=== PATIENT | female | born 1990 | race Caucasian/White ===

== ENCOUNTER 2023-06-17 15:33 | Emergency (ER) | payer OTHER, SELFPAY ==
[2023-06-17 16:05] VITALS: BP 103/59; PULSE 78; RESP 14; TEMP 37.4; O2SAT 99; BMI 19.4
--- NOTE | 2023-06-17 16:11 | ED.GENADULT ---
HPI - General Adult General Chief complaint: Weakness Stated complaint: fatigue, vomitting los of appetite Time Seen by Provider: 06/17/23 22:05 Source: patient Mode of arrival: ambulatory Limitations: no limitations History of Present Illness HPI narrative: 32 yo female with PMH of anxiety and episodes of GI distress related to stress comes in with c/o n/v/d and lower abdominal pain starting all at once this AM. NO travel, sick contacts, food exposures, antibiotics in last 4 weeks. She now has a frontal headache and feels tired from all of the vomiting. MD complaint: n/v/d abdominal pain headaches Onset (ago): day(s) (this AM) Location: abdomen Severity: moderate Quality: aching Pain Consistency: intermittent Relieving factors: none Exacerbating factors: eating Associated symptoms: loss of appetite, malaise and nausea/vomiting Treatments prior to arrival: none Related Data Previous Rx's Medication Instructions Recorded ondansetron 4 mg disintegrating 4 mg PO Q8H PRN nausea and 06/17/23 tablet vomiting #20 tabs Allergies Allergy/AdvReac Type Severity Reaction Status Date / Time acetaminophen [From TYLENOL] Allergy Severe NAUSEA/VOMI Unverified 12/23/19 16:11 DEREK Review of Systems Review of Systems: Constitutional : No Weight loss, No Fever, No Chills ENT/Mouth : No sore throat, No Rhinorrhea Eyes: No Swelling, No Redness Cardiovascular : No Chest Pain, No SOB, NoEdema Respiratory : No Cough, No Sputum, No Wheezing Gastrointestinal : Positive Nausea, Positive Vomiting, positive Diarrhea, positive abdominal Pain, No Hematochezia, No Melena Genitourinary : No Dysuria, No Urinary Frequency, No Hematuria, No Urgency Musculoskeletal : No joint pain, No Myalgias, No Joint Swelling Skin : No Skin Lesions, No rash Neuro : No Weakness, No Numbness, No Dizziness, pos Headache Psych : No Anxiety/Panic, No Depression Heme/Lymph: No Bruising, No Lymphadenopathy Endocrine : No Polyuria, No Polydipsia All other systems reviewed and are negative. [facility] Past Medical History Attestation statement: The following information was validated with the patient. Source: old records reviewed Medical History Anxiety Social History Social History (Updated 06/17/23 @ 22:45 by RAFAT Lennon Patient Tobacco Use Status: Never used Tobacco Smoked in Last 30 Days: No Use of substances other than those prescribed or required for medical reasons: No Any prior treatment program specific to substance use: No Advance Directives: No Advance Directives Information Provided: No Patient : No Physical Exam ED Vital Signs: Vital Signs - 24 hr 06/17/23 16:05 06/17/23 22:04 06/18/23 01:06 Temperature 99.3 F 98.2 F 97.8 F Pulse Rate 78 71 78 Respiratory Rate 14 14 14 Blood Pressure 103/59 L 112/59 L 116/50 L Pulse Oximetry 99 100 99 Oxygen Delivery Method Room Air Room Air Room Air BMI result Body Mass Index 19.4 Appearance: Alert. Oriented X3. No acute distress. Eyes: Pupils equal, round and reactive to light. ENT: Pharynx moderate dry MM Neck: Normal inspection. Neck supple. CVS: Normal heart rate and rhythm. Pulses normal. Respiratory: No respiratory distress. Breath sounds normal. Abdomen: Soft and mild LLQ Pain no rebound Skin: Skin warm and dry. Normal skin color. Normal skin turgor. Extremities: No lower extremity edema. No calf ttp Neuro: Oriented X 3. No motor deficit. No sensory deficit. Course Course Course Narrative: RME; 32 year female presents to ED for fatigue, vomiting, loss of appetite. Patient also states mild nasal congestion and sore throat. Medications Administered Discontinued Medications Generic Name Dose Route Start Last Admin Trade Name Freq PRN Reason Stop Dose Admin Diphenhydramine HCl 25 mg 06/17/23 22:32 06/17/23 22:57 Diphenhydramine Hcl 50 Mg/Ml Vial IVPUSH 06/17/23 22:33 25 mg ONCE ONE Administration Sodium Chloride 1,000 mls @ 999 mls/hr 06/17/23 22:45 06/18/23 00:38 Ns IV 06/17/23 23:45 Infused .Q1H1M CRYSTAL Infusion Sodium Chloride 1,000 mls @ 999 mls/hr 06/17/23 22:45 06/18/23 00:38 Ns IV 06/17/23 23:45 Infused .Q1H1M CRYSTAL Infusion Ketorolac Tromethamine 15 mg 06/17/23 22:32 06/17/23 22:48 Ketorolac Tromethamine 15 Mg/Ml Vial IM 06/17/23 22:33 15 mg ONCE ONE Administration Lorazepam 0.5 mg 06/18/23 00:01 06/18/23 00:16 Lorazepam 2 Mg/Ml Vial IVPUSH 06/18/23 00:02 Not Given STAT STA Metoclopramide HCl 10 mg 06/17/23 22:32 06/17/23 22:57 Metoclopramide Hcl 10 Mg/2 Ml Vial IVPUSH 06/17/23 22:33 10 mg ONCE ONE Administration Medical Decision Making Medical Decision Making MDM Narrative: 32 yo female with PMH of anxiety here with c/o n/v/d and abdominal pain now with headache after vomiting all day she is not toxic appearing but does appear dry has mild LLQ pain all symptoms started together and headache is when she gets up from likely dehydration. It is not severe she is playing on her phone she has a normal neuro exam doubt SAH. She has no RLQ pain to suggest appendicitis and all symptoms started together. At this time will need basic labs, UA, UPT hydrate and provide supportive care suspect viral syndrome Differential Diagnosis Differential Diagnoses: The differential diagnosis associated with the presentation includes dehydration, viral syndrome, enteritis Admission/Observation Consideration of admission/observation: Escalation of care including admission/observation considered feels better can tolerate PO Lab Data [facility] Lab Attestation statement: I reviewed the patient's lab results. 06/17/23 16:33 06/17/23 16:33 Labs: Lab Results 06/17/23 Range/Units 16:33 WBC 10.2 (4.8-10.8) X10*3/uL RBC 4.53 (4.20-5.50) X10*6/uL Hgb 14.3 (12.0-16.0) g/dl Hct 41.2 (37.0-47.0) % MCV 90.9 (80.0-98.0) fL MCH 31.6 (27.0-33.0) pg MCHC 34.7 (31.0-35.0) g/dl RDW 13.2 (11.0-16.0) % Plt Count 207 (160-400) X10*3/uL MPV 9.7 (9.4-12.3) fL Immature Gran % (Auto) 0.3 (0.0-0.4) % Neut % (Auto) 88.2 H (45-73) % Lymph % (Auto) 9.1 L (20-40) % [place] % (Auto) 2.3 (2-11) % Eos % (Auto) 0.0 (0-4) % Baso % (Auto) 0.1 (0-2) % Lymph # (Auto) 0.9 L (1.2-4.9) X10*3/uL [place] # (Auto) 0.2 (0.1-1.2) X10*3/uL Eos # (Auto) 0.0 (0.0-0.4) X10*3/uL Baso # (Auto) 0.0 (0.0-0.2) X10*3/uL Abs Immat Gran (auto) 0.03 (0.00-0.03) X10*3/uL Absolute Neuts (auto) 9.0 H (2.0-8.3) x10*3/uL Absolute Nucleated RBC 0.000 (0.0-0.012) X10*3/uL Nucleated RBC % (auto) 0.0 (0.0-0.2) /100WBC Sodium 138 (135-145) mmol/L Potassium 4.2 (3.3-5.1) mmol/L Chloride 106 (96-108) mmol/L Carbon Dioxide 26 (22-29) mmol/L Anion Gap 10 L (12-20) BUN 10 (9-16) mg/dL Creatinine 0.62 (0.5-1.4) mg/dL Estim Creat Clear Calc 84.8 Estimated GFR > 60 Random Glucose 104 (60-115) mg/dL Calcium 9.6 (8.4-10.2) mg/dL Total Bilirubin 1.7 H (0.0-1.0) mg/dL AST 16 (5-31) U/L ALT 11 (0-31) U/L Alkaline Phosphatase 88 (39-117) U/L Total Protein 7.3 (6.5-8.0) g/dL Albumin 4.7 (3.5-5.0) g/dL Lipase 12 (8-78) U/L Urine Color Yellow Urine Appearance Clear Urine pH 8.5 (5.0-9.0) Ur Specific [place] 1.025 (1.005-1.025) Urine Protein Negative (Neg-Trace) mg/dL Urine Glucose (UA) Negative (Negative) mg/dL Urine Ketones 40 (Negative) mg/dL Urine Blood Negative (Negative) Urine Nitrite Negative (Negative) Ur Leukocyte Esterase Negative (Negative) Urine Test NEGATIVE (NEGATIVE) Influenza Type A (PCR) NEGATIVE (Negative) Influenza Type B (PCR) NEGATIVE (Negative) RSV RNA Qual (PCR) NEGATIVE (Negative) SARS-CoV-2 RNA (RT-PCR) NEGATIVE (Negative) S. pyogenes GrpA JD Negative (Negative) External Record Review External record reviewed: Inpatient record Prescription Management I considered prescription management with: Other Discharge Plan Discharge Clinical Impression: Nausea & vomiting Qualifiers: Vomiting type: unspecified Qualified Code(s): R11.2 - Nausea with vomiting, unspecified Diarrhea Qualifiers: Diarrhea type: unspecified type Qualified Code(s): R19.7 - Diarrhea, unspecified Patient Disposition: Home, Self-Care Instructions: Acute Nausea and Vomiting (ED), Acute Diarrhea (ED) Additional Instructions: stay hydrated drink plenty of fluids, advance diet slowly over the next 48 hours return for fevers, worsening pain, inability to eat or drink or any other concerns. Prescriptions: New ondansetron 4 mg tablet,disintegrating 4 mg PO Q8H PRN (Reason: nausea and vomiting) Qty: 20 0RF Stand Alone Forms: Work/School Release Interventions: ED Discharge Assessment Last Done: 06/18/23 01:16 Discharge Date/Time: 06/18/23 01:17
[2023-06-17 16:38] LABS: MANUAL DIFF FLAG NO
[2023-06-17 16:41] LABS: Basophils Percent Auto 0.1 % (0-2); Hematocrit 41.2 % (37.0-47.0); Hemoglobin 14.3 g/dl (12.0-16.0); Imm Gran Abs Auto 0.03 X10*3/uL (0.00-0.03); Imm Gran Pct Auto 0.3 % (0.0-0.4); Lymphocytes Absolute Auto 0.9 X10*3/uL (1.2-4.9); Lymphocytes Percent Auto 9.1 % (20-40); Mean Corpuscular HGB Conc 34.7 g/dl (31.0-35.0); Mean Corpuscular Hemoglobin 31.6 pg (27.0-33.0); Mean Corpuscular Volume 90.9 fL (80.0-98.0); Mean Platelet Volume 9.7 fL (9.4-12.3); Monocytes Absolute Auto 0.2 X10*3/uL (0.1-1.2); Monocytes Percent Auto 2.3 % (2-11); Neutrophils Percent Auto 88.2 % (45-73); Platelet Count 207 X10*3/uL (160-400); Red Blood Count 4.53 X10*6/uL (4.20-5.50); Red Cell Distribution Width 13.2 % (11.0-16.0); White Blood Count 10.2 X10*3/uL (4.8-10.8)
[2023-06-17 16:42] LABS: Appearance Urine Clear; Color Urine Yellow; Glucose Urine UA Negative (Negative); Leukocyte Esterase Urine Negative (Negative); Nitrite Urine Negative (Negative); PH 8.5 (5.0-9.0); Specific Gravity - Urine 1.025 (1.005-1.025); Urine Blood Negative (Negative); Urine Ketones 40 mg/dL (Negative); Urine Protein Negative (Neg-Trace)
[2023-06-17 16:50] LABS: UPreg QC Valid YES; Urine Pregnancy NEGATIVE (NEGATIVE)
[2023-06-17 17:00] LABS: Alanine Aminotransferase 11 U/L (0-31); Albumin Level 4.7 g/dL (3.5-5.0); Alkaline Phosphatase 88 U/L (39-117); Anion Gap 10 (12-20); Aspartate Amino Transferase 16 U/L (5-31); Bilirubin Total 1.7 mg/dL (0.0-1.0); Blood Urea Nitrogen 10 mg/dL (9-16); Calcium 9.6 mg/dL (8.4-10.2); Carbon Dioxide 26 mmol/L (22-29); Chloride 106 mmol/L (96-108); Creatinine Clr Calc Pharmacy 84.8; Estimated Glomerular Filt Rate > 60; Glucose Random 104 mg/dL (60-115); Lipase 12 U/L (8-78); Potassium 4.2 mmol/L (3.3-5.1); Sodium 138 mmol/L (135-145); Total Protein 7.3 g/dL (6.5-8.0)
[2023-06-17 17:16] LABS: Influenza A PCR NEGATIVE (Negative); Influenza B PCR NEGATIVE (Negative); Resp Syncy Virus RNA Qual PCR NEGATIVE (Negative); SARS COV2 PCR INHOUSE NEGATIVE (Negative)
[2023-06-17 17:23] LABS: IDNOW Serial# 08D9AD1C
[2023-06-17 17:24] LABS: Strep A Nucleic Acid Negative (Negative)
[2023-06-17 22:04] VITALS: BP 112/59; PULSE 71; RESP 14; TEMP 36.8; O2SAT 100
[2023-06-17] MEDS: Ketorolac Tromethamine 15 MG/ML VIAL IM (22:48)
[2023-06-17] MEDS: 0.9 % Sodium Chloride 1,000 ML 999 ML IV ×2 (22:48)
[2023-06-17] MEDS: Metoclopramide HCl 10 MG/2 ML VIAL IVPUSH (22:57)
[2023-06-17] MEDS: diphenhydrAMINE HCL 50 MG/ML VIAL 25 MG IVPUSH (22:57)
[2023-06-18 01:06] VITALS: BP 116/50; PULSE 78; RESP 14; TEMP 36.6; O2SAT 99
== END 2023-06-18 01:17 | disposition home or self-care (01) ==
PROVIDERS: Physician Assistant; Emergency Provider Emergency Medicine
DX: R11.2 Nausea with vomiting, unspecified (principal); R53.83 Other fatigue; R19.7 Diarrhea, unspecified; Z11.52 Encounter for screening for COVID-19; Z20.822 Contact with and (suspected) exposure to COVID-19; Z79.899 Other long term (current) drug therapy
CPT/HCPCS: 0241U; 80053; 81003; 81025; 83690; 85025; 87651; 96361; 96372; 96374; 96375; 99284; 99285; J1200; J1885; J2765

== ENCOUNTER 2024-08-20 09:55 | Emergency (ER) | payer MEDICAID, SELFPAY ==
--- NOTE | ~2024-08-20 | US_ITS ---
EXAMINATION: US PELVIS CLINICAL INFORMATION: Left lower quadrant abdominal pain. COMPARISON: None available. TECHNIQUE: Ultrasound of the pelvis is performed using both transabdominal and transvaginal transducers along with Doppler. Transvaginal imaging is performed due to inadequate visualization transabdominally. FINDINGS: Uterus: The uterus is anteverted, anteflexed, and measures 7.3 x 3.1 x 3.8 cm. The cervix has a normal appearance. The double wall endometrial thickness is 6 mm. The uterus is smooth in contour and has normal myometrial echogenicity. No visible fibroid. Adnexa: Both ovaries are visualized. There is normal color flow to the adnexa. There is no ovarian torsion. There is small volume anechoic free pelvic fluid, likely physiologic. There are prominent vessels in the left adnexa, nonspecific. Right ovary measures 3.4 x 2.0 x 1.9 cm. Volume = 6.1 mL. Normal sonographic appearance. Left ovary measures 3.7 x 1.8 x 2.2 cm. Volume = 9.1 mL. Normal sonographic appearance. US/US pelvic and transvaginal IMPRESSION: 1. Mildly prominent vessels in the left adnexa, nonspecific finding which could potentially relate to pelvic congestion syndrome. 2. Otherwise normal pelvic ultrasound. Electronically signed by: Freddy Moore MD 08/20/2024 12:27 PM EDT
[2024-08-20 10:05] VITALS: BP 108/70; PULSE 77; O2SAT 98
[2024-08-20 10:16] VITALS: BP 95/62; PULSE 85; RESP 18; TEMP 36.7; O2SAT 99; BMI 21.5
[2024-08-20 10:33] LABS: MANUAL DIFF FLAG NO
[2024-08-20 10:36] LABS: Basophils Percent Auto 0.1 % (0-2); Eosinophils Percent Auto 0.1 % (0-4); Hematocrit 39.5 % (37.0-47.0); Hemoglobin 14.3 g/dl (12.0-16.0); Imm Gran Abs Auto 0.03 X10*3/uL (0.00-0.03); Imm Gran Pct Auto 0.4 % (0.0-0.4); Lymphocytes Percent Auto 12.4 % (20-40); Mean Corpuscular HGB Conc 36.2 g/dl (31.0-35.0); Mean Corpuscular Hemoglobin 32.8 pg (27.0-33.0); Mean Corpuscular Volume 90.6 fL (80.0-98.0); Mean Platelet Volume 9.6 fL (9.4-12.3); Monocytes Absolute Auto 0.2 X10*3/uL (0.1-1.2); Monocytes Percent Auto 2.5 % (2-11); Neutrophils Absolute Auto 7.1 x10*3/uL (2.0-8.3); Neutrophils Percent Auto 84.5 % (45-73); Platelet Count 203 X10*3/uL (160-400); Red Blood Count 4.36 X10*6/uL (4.20-5.50); Red Cell Distribution Width 12.4 % (11.0-16.0); White Blood Count 8.4 X10*3/uL (4.8-10.8)
[2024-08-20 10:46] LABS: Appearance Urine Turbid; Color Urine Yellow; Glucose Urine UA Negative (Negative); Leukocyte Esterase Urine Trace (Negative); Nitrite Urine Negative (Negative); PH >= 9.0 (5.0-9.0); Specific Gravity - Urine 1.025 (1.005-1.025); UMIC TRIGGER UACC YES; UPreg QC Valid YES; Urine Blood Negative (Negative); Urine Ketones 80 mg/dL (Negative); Urine Protein 30 (1+) mg/dL (Neg-Trace)
[2024-08-20 10:47] LABS: Urine Pregnancy NEGATIVE (NEGATIVE)
[2024-08-20 10:51] LABS: Anion Gap 14 (12-20); Blood Urea Nitrogen 17 mg/dL (9-16); Calcium 9.4 mg/dL (8.4-10.2); Carbon Dioxide 25 mmol/L (22-29); Chloride 105 mmol/L (96-108); Creatinine Clr Calc Pharmacy 81.4; Estimated Glomerular Filt Rate > 60; Glucose Random 106 mg/dL (60-115); Potassium 3.9 mmol/L (3.3-5.1); Sodium 140 mmol/L (135-145)
[2024-08-20 10:56] LABS: Bacteria Urine Trace (None Seen); Hyaline Casts Urine 0-2 /LPF (0-2); RBC Urine 0-2 /HPF (0-2); WBC Urine 0-5 /HPF (0-5)
[2024-08-20 10:57] LABS: Other Crystals Urine Present
--- NOTE | 2024-08-20 11:37 | ED_ITS ---
HPI - General Adult General Chief complaint: Abdominal Pain Stated complaint: anxiety Time Seen by Provider: 08/20/24 11:26 Source: patient Mode of arrival: ambulatory Limitations: no limitations History of Present Illness HPI narrative: A 34-year-old woman with a past medical history of anxiety, marijuana use who presents for evaluation of abdominal pain, nausea/vomiting, diarrhea and anxiety. Patient states that she has experienced similar symptoms nearly on a monthly basis for the last approximate 10 years. She states symptoms started 1 day prior to presentation. She reports having left lower quadrant abdominal pain. She states pain was not abrupt onset and waxes and wanes in severity. She states that she has not taken anything for pain today. She states the pain feels better when she presses on her abdomen with her hands. She reports few episodes of nonbloody, nonbilious emesis and loose, nonbloody stools. She states that she has had a ?runs ?, which she attributes to drinking milk. She states no abdominal surgical history. She states no recent hospitalization or use of antibiotics in the last month. He states that she has smoke marijuana regularly, but states no other recreational/illicit drugs. She states no significant alcohol use. She states no headaches, fevers, cough, congestion, chest pain or dyspnea. She states no trauma. She states no urinary symptoms, vaginal discharge or concerns for sexually transmitted infection. She states her last menstrual period was about 2-3 weeks ago. Related Data Previous Rx's ?Medication ?Instructions ?Recorded ondansetron 4 mg disintegrating 4 mg PO Q8H PRN nausea and 06/17/23 tablet vomiting #20 tabs ondansetron 4 mg disintegrating 4 mg PO Q8H PRN nausea and 08/20/24 tablet vomiting #20 tabs Allergies Allergy/AdvReac Type Severity Reaction Status Date / Time acetaminophen [From TYLENOL] Allergy Severe NAUSEA/VOMI Verified 08/20/24 10:18 DEREK Review of Systems 2 Review of Systems: ROS as per [facility] Past Medical History Medical History Anxiety Social History Social History (Updated 06/17/23 @ 22:45 by Bernie Tucker DO) Alcohol intake: former Patient Tobacco Use Status: Never used Tobacco Smoked in Last 30 Days: No Use of substances other than those prescribed or required for medical reasons: Yes Substance Use Type: Marijuana Advance Directives: No Advance Directives Information Provided: Yes Do you have a plan to hurt others: No Plan Physical Exam ED Vital Signs: Vital Signs - 24 hr 08/20/24 10:16 08/20/24 12:09 Temperature 98.0 F 98.5 F Pulse Rate 85 66 Respiratory Rate 18 18 Blood Pressure 95/62 94/44 L Pulse Oximetry 99 Oxygen Delivery Method Room Air Room Air Oxygen Flow Rate 99 BMI result Body Mass Index 21.5 Gen: NAD, AOx3 HEENT: NCAT, EOMI, normal conjunctiva CV: RRR Pulm: CTAB, no increased work of breathing GI: Soft, NTND, no rebound, guarding or rigidity Neuro: Grossly non focal Medications Administered Generic Name Dose Route Start Last Admin Trade Name Freq PRN Reason Stop Dose Admin Sodium Chloride 1,000 mls @ 999 mls/hr 08/20/24 11:45 08/20/24 12:06 Ns IV 08/20/24 12:45 999 mls/hr .Q1H1M CRYSTAL Administration Discontinued Medications Generic Name Dose Route Start Last Admin Trade Name Freq PRN Reason Stop Dose Admin Ketorolac Tromethamine 15 mg 08/20/24 11:34 08/20/24 12:05 Ketorolac Tromethamine 15 Mg/Ml Vial IVPUSH 08/20/24 11:35 15 mg ONCE ONE Administration Lorazepam 1 mg 08/20/24 11:35 08/20/24 11:45 Lorazepam 1 Mg Tablet PO 08/20/24 11:36 Not Given ONCE ONE Ondansetron HCl 4 mg 08/20/24 11:34 08/20/24 12:05 Ondansetron Hcl 4 Mg/2 Ml Vial IVPUSH 08/20/24 11:35 4 mg ONCE ONE Administration Medical Decision Making Medical Decision Making [facility] Narrative: Differential diagnosis includes, but is not limited to ovarian cyst, gastroenteritis, IBS Patient is afebrile and hemodynamically stable on room air. Exam is benign and reassuring. The patient is treated supportively here in the emergency room with IV fluids, Toradol, Zofran and Ativan. I reviewed and interpreted the patient's labs, urinalysis and diagnostic imaging as below. On re-examination, patient is well-appearing and in no acute distress. ?Patient states symptoms have resolved. ?There is no indication for further emergent evaluation in this otherwise well-appearing patient as above. ?Patient is provided written and verbal instructions, educational materials, recommendations for outpatient follow-up, referral to OBGYN, prescription for Zofran, strict return precautions and teach back is performed. ?Patient states understanding and agreement with plan of care. ?Patient is discharged home in stable and improved condition. Admission/Observation Consideration of admission/observation: Escalation of care including admission/observation considered Lab Data MDM Lab Attestation statement: I reviewed the patient's lab results. CBC is unremarkable. Basic metabolic panel unremarkable with no evidence of acute kidney injury or electrolyte derangement. There is no anion gap elevation to suggest starvation ketosis in the setting of nausea and vomiting. Hepatic function panel with mild hyperbilirubinemia of 1.3 (low clinical suspicion for acute biliary disease such as acute cholecystitis given lack of right upper quadrant pain and reaassuring abdominal exam, this may be secondary to stress, direct bilirubin 0.4). Lipase is within normal limits. Urinalysis overall reassuring with no suggestion of urinary tract infection in this clinical setting. Urine specific gravity at the upper limit of normal 1.025, which consistent with mild dehydration in the setting of vomiting and diarrhea. Beta hCG negative. 08/20/24 10:26 08/20/24 10:26 Labs: Lab Results 08/20/24 08/20/24 Range/Units 10:26 10:40 WBC 8.4 (4.8-10.8) X10*3/uL RBC 4.36 (4.20-5.50) X10*6/uL Hgb 14.3 (12.0-16.0) g/dl Hct 39.5 (37.0-47.0) % MCV 90.6 (80.0-98.0) fL MCH 32.8 (27.0-33.0) pg MCHC 36.2 H (31.0-35.0) g/dl RDW 12.4 (11.0-16.0) % Plt Count 203 (160-400) X10*3/uL MPV 9.6 (9.4-12.3) fL Immature Gran % (Auto) 0.4 (0.0-0.4) % Neut % (Auto) 84.5 H (45-73) % Lymph % (Auto) 12.4 L (20-40) % [place] % (Auto) 2.5 (2-11) % Eos % (Auto) 0.1 (0-4) % Baso % (Auto) 0.1 (0-2) % Lymph # (Auto) 1.0 L (1.2-4.9) X10*3/uL [place] # (Auto) 0.2 (0.1-1.2) X10*3/uL Eos # (Auto) 0.0 (0.0-0.4) X10*3/uL Baso # (Auto) 0.0 (0.0-0.2) X10*3/uL Abs Immat Gran (auto) 0.03 (0.00-0.03) X10*3/uL Absolute Neuts (auto) 7.1 (2.0-8.3) x10*3/uL Absolute Nucleated RBC 0.000 (0.0-0.012) X10*3/uL Nucleated RBC % (auto) 0.0 (0.0-0.2) /100WBC Sodium 140 (135-145) mmol/L Potassium 3.9 (3.3-5.1) mmol/L Chloride 105 (96-108) mmol/L Carbon Dioxide 25 (22-29) mmol/L Anion Gap 14 (12-20) BUN 17 H (9-16) mg/dL Creatinine 0.64 (0.5-1.4) mg/dL Estim Creat Clear Calc 81.4 Estimated GFR > 60 Random Glucose 106 (60-115) mg/dL Calcium 9.4 (8.4-10.2) mg/dL Magnesium 2.1 (1.6-2.6) mg/dL Total Bilirubin 1.3 H (0.0-1.0) mg/dL Direct Bilirubin 0.4 (0.0-0.5) mg/dL AST 20 (5-31) U/L ALT 13 (0-31) U/L Alkaline Phosphatase 75 (39-117) U/L Total Protein 7.2 (6.5-8.0) g/dL Albumin 4.7 (3.5-5.0) g/dL Lipase 18 (8-78) U/L Urine Color Yellow Urine Appearance Turbid Urine pH >= 9.0 (5.0-9.0) Ur Specific [place] 1.025 (1.005-1.025) Urine Protein 30 (1+) H (Neg-Trace) mg/dL Urine Glucose (UA) Negative (Negative) mg/dL Urine Ketones 80 (Negative) mg/dL Urine Blood Negative (Negative) Urine Nitrite Negative (Negative) Ur Leukocyte Esterase Trace H (Negative) Urine RBC 0-2 (0-2) /HPF Urine WBC 0-5 (0-5) /HPF Ur Squamous Epith Cells 11-20 (0-2) /HPF Other Crystals Present Urine Bacteria Trace (None Seen) Hyaline Casts 0-2 (0-2) /LPF Urine Test NEGATIVE (NEGATIVE) Independent Interpretation I performed an independent interpretation of an: Ultrasound Interpretation: US/US pelvic and transvaginal IMPRESSION: 1. Mildly prominent vessels in the left adnexa, nonspecific finding which could potentially relate to pelvic congestion syndrome. 2. Otherwise normal pelvic ultrasound. Electronically signed by: Freddy Moore MD 08/20/2024 12:27 PM EDT Dictated By: Freddy Moore MD Signed By: <Electronically signed by Freddy Moore MD in OV> 08/20/24 1227 Radiology Impression Discussion of test interpretation with radiology: I have reviewed the radiologist's reading. Discharge Plan Discharge Clinical Impression: Pelvic congestion syndrome Patient Disposition: Home, Self-Care Additional Instructions: You were evaluated in the emergency room. Your emergency room evaluation was overall reassuring with no emergent findings. Your blood work, urine studies were unremarkable. Pelvic ultrasound showed mildly prominent vessels in the left adnexa, nonspecific but could be pelvic congestion syndrome. Please take 600 mg ibuprofen with food and water every 6 hours as needed for pain. You were given a prescription for an antinausea medicine. Please take as directed. You were given a referral to follow up with an OBGYN. Please follow up in the next 1-2 weeks to discuss her symptoms and ultrasound findings. Return to the emergency room with a new concerns or symptoms. Prescriptions: New ondansetron 4 mg tablet,disintegrating 4 mg PO Q8H PRN (Reason: nausea and vomiting) Qty: 20 0RF No Action ondansetron 4 mg tablet,disintegrating 4 mg PO Q8H PRN (Reason: nausea and vomiting) Qty: 20 0RF Referrals: [facility] [place] Women's Services [Provider Group] Print Language: Choose Not To Answer
[2024-08-20] MEDS: ondansetron HCL 4 MG/2 ML VIAL IVPUSH (12:05)
[2024-08-20] MEDS: Ketorolac Tromethamine 15 MG/ML VIAL IVPUSH (12:05)
[2024-08-20] MEDS: 0.9 % Sodium Chloride 1,000 ML 999 ML IV (12:06)
[2024-08-20 12:09] VITALS: BP 94/44; PULSE 66; RESP 18; TEMP 36.9
[2024-08-20 12:12] LABS: Alanine Aminotransferase 13 U/L (0-31); Albumin Level 4.7 g/dL (3.5-5.0); Alkaline Phosphatase 75 U/L (39-117); Aspartate Amino Transferase 20 U/L (5-31); Bilirubin Direct 0.4 mg/dL (0.0-0.5); Bilirubin Total 1.3 mg/dL (0.0-1.0); Lipase 18 U/L (8-78); Magnesium 2.1 mg/dL (1.6-2.6); Total Protein 7.2 g/dL (6.5-8.0)
[2024-08-20 12:49] VITALS: BP 94/44; PULSE 66; RESP 18; TEMP 36.9
== END 2024-08-20 12:50 | disposition home or self-care (01) ==
PROVIDERS: Emergency Provider Emergency Medicine
DX: N94.89 Other specified conditions associated with female genital organs and menstrual cycle (principal); R10.2 Pelvic and perineal pain
CPT/HCPCS: 36415; 76830; 76856; 80048; 80076; 81001; 81025; 83690; 83735; 85025; 96361; 96374; 96375; 99284; J1885; J2405

== ENCOUNTER → 2024-08-20 11:36 | Outpatient (BNV) | payer OTHER, SELFPAY | PROVIDERS: Emergency Provider Emergency Medicine; Visit Provider Radiology Diagnostic Radiology | DX: R10.32 Left lower quadrant pain (principal) | CPT/HCPCS: 76830; 76856 ==

== ENCOUNTER 2025-02-11 10:27 | Outpatient (REF) | payer MEDICAID, SELFPAY ==
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
--- OUTSIDE RECORDS SUMMARY | 2025-02-11 12:21 | XMS_ITS | Encounter Summary ---
Author Organization [employer] Address [address] [facility] [address] [place] [address] Care Team Providers Care Precipitator Operator Name Role Phone Michela Rojas KEVAN Primary Care Provider [phone] Encounter Details Date Type Department Care Team (Latest Contact Info) Description 02/11/2025 Travel Social History Tobacco Use Types Packs/Day Years [...] PM EST documented as of this encounter Functional Status * Over the past 2 weeks, how often have you been bothered by any of the following problems? Question Answer Date of Assessment Author Patient Health Questionnaire -2 Score 4 02/11/2025 9:44 AM Kerrie Kapadia MA * Little interest or pleasure in [...] of Assessment Author 16 02/11/2025 9:44 AM Tonia Kapadia MA * How difficult have these [...] MA Trouble relaxing 3 02/11/2025 9:43 AM EST Kerrie Parker MA Being so restless that it is [...] Description 04/11/2025 10:15 AM EST Office Visit [facility] MED & PEDS [address] [place] [address] Michela Rojas FNP [address] [place] [address] documented as of this encounter Visit Diagnoses Not on filedocumented in this encounter Additional Health Concerns Assessment Noted Time PHQ-9 Depression Total Score: 16 025 9:44 AM EST documented as of this encounter Care Teams Precipitator Operator Relationship Specialty Start Date End Date Michela Rojas FNP [address] [place] [address] PCP - General Family Medicine 02/11/25 documented as of this encounter
--- OUTSIDE RECORDS SUMMARY | 2025-02-11 12:21 | XMS_ITS | Encounter Summary ---
Author Organization [employer] Address [address] [facility] [address] [place] [address] Care Team Providers Care Aircraft Engine Installer Name Role Phone Sara Griffin NP Primary Care Provider [phone] Encounter Details Date Type Department Care Team ([facility] Contact Info) Description 02/08/2025 Telephone [facility] [address] [place], [place] [phone] Michela Rojas FNP [address] [place], [place] [phone] Social History Tobacco Use Types Packs/Day Years [...] Answer Date Recorded Patient Health Questionnaire-9 Score 9 03/30/2024 Patient Health Questionnaire-9 Score 9 03/30/2024 Last PHQ-9: Questionnaire Data Not on file 1 05/31/2023 Housing Stability Answer Date Recorded What is [...] the past 12 months, has t he [employer], gas, oil or water [employer] threatened to shut off services in your home? No 03/30/2024 Depression Answer Date Recorded Patient Health Questionnaire-2 Score 3 03/30/2024 Internet Access Answer Date Recorded Internet Access Q1 Yes 03/30/2024 Internet Access Q2 Not on file 03/30/2024 Comments Unknown Sex and Gender Information Value Date Recorded Sex Assigned at Female 02/04/2022 10:18 AM EDT Legal Sex Female 10:18 AM EDT Gender Identity Female 03/03/2024 1:20 PM EST Sexual Orientation Lesbian 03/03/2024 1: 20 PM EST documented as of this encounter Miscellaneous Notes * Telephone Encounter - Kerrie Fuller MA - 02/08/2025 2:03 PM EST Chart Prep Labs: done Images: done Referrals: not applicable Vaccines due: Covid, Flu, PCV20, Hep B, and HPV Screenings: PAP Overdue care gaps: SBIRT, PHQ-9, ASHLEY-7, Disability screen, and Tobacco documented in this encounter Plan of Treatment Upcoming Encounters Date Type Department Care Team (Late st Contact Info) Description 04/11/2025 10:15 AM EST Office Visit [facility] MED & PEDS [address] [place] [address] Michela Rojas FNP [address] [place] [address] documented as of this encounter Visit Diagnoses Not on filedocumented in this encounter Additional Health Concerns Assessment Noted Time PHQ-9 Depression Total Score: 9 03/30/20 9:03 AM EST documented as of this encounter Care Teams Aircraft Engine Installer Relationship Specialty Start Date End Date Sara Griffin NP [address] [place] [id number] PCP - General Family Medicine 03/03/24 02/10/25 documented as of this encounter
[2025-02-11 14:11] LABS: MANUAL DIFF FLAG NO
[2025-02-11 14:20] LABS: Hematocrit 41.5 % (37.0-47.0); Hemoglobin 14.1 g/dl (12.0-16.0); Imm Gran Abs Auto 0.01 X10*3/uL (0.00-0.03); Imm Gran Pct Auto 0.2 % (0.0-0.4); Lymphocytes Absolute Auto 1.5 X10*3/uL (1.2-4.9); Mean Corpuscular HGB Conc 34.0 g/dl (31.0-35.0); Mean Corpuscular Hemoglobin 31.4 pg (27.0-33.0); Mean Corpuscular Volume 92.4 fL (80.0-98.0); NRBC Abs Auto 0.000 X10*3/uL (0.0-0.012); NRBC Pct Auto 0.0 /100WBC (0.0-0.2); Platelet Count 232 X10*3/uL (160-400); Red Blood Count 4.49 X10*6/uL (4.20-5.50); White Blood Count 4.2 X10*3/uL (4.8-10.8)
[2025-02-11 14:29] LABS: Alanine Aminotransferase 16 U/L (0-31); Albumin Level 5.1 g/dL (3.5-5.0); Alkaline Phosphatase 91 U/L (39-117); Anion Gap 10 (12-20); Aspartate Amino Transferase 26 U/L (5-31); Blood Urea Nitrogen 13 mg/dL (9-16); Calcium 9.6 mg/dL (8.4-10.2); Carbon Dioxide 31 mmol/L (22-29); Chloride 104 mmol/L (96-108); Cholesterol 170 mg/dL (<200); Estimated Glomerular Filt Rate > 60; HDL Cholesterol 59 mg/dL (>40); Potassium 4.1 mmol/L (3.3-5.1); Sodium 141 mmol/L (135-145); Total Protein 7.4 g/dL (6.5-8.0); Triglycerides 41 mg/dL (<150)
[2025-02-11 15:56] LABS: CT PCR Urine NOT DETECTED (Not Detect.); NG PCR Urine NOT DETECTED (Not Detect.)
[2025-02-13 04:32] LABS: HIV Num 1 0.07 S/CO (0.00-0.99)
[2025-02-14 20:53] LABS: HCV Log PCR <1.18 NOT DETECTED Log IU/mL (NOT DETECTED); HepC Viral Load <15 NOT DETECTED IU/mL (NOT DETECTED)
== END 2025-02-11 10:28 | disposition home or self-care (01) ==
LOC: HO.CHCLDS 10:27
PROVIDERS: Visit Provider Registered Nurse
DX: Z00.00 Encounter for general adult medical examination without abnormal findings (principal); Z11.4 Encounter for screening for human immunodeficiency virus [HIV]; Z20.2 Contact with and (suspected) exposure to infections with a predominantly sexual mode of transmission
CPT/HCPCS: 80053; 80061; 82306; 83036; 84443; 85025; 86592; 87389; 87491; 87522; 87591